=== PATIENT | female | born 1975 | race Caucasian/White ===

== ENCOUNTER → 2018-06-06 | Outpatient (CLI) | payer BC ==
[2016-05-01 20:55] VITALS: BP 137/80
--- NOTE | 2018-06-06 10:50 | RAD ---
MR#: [id number] Date of Study: 06/06/2018 Ordering Physician: MELO MAHMOOD, Referring Physician: MELO MAHMOOD Tech: Virginia Massey RDMS RVT APPROVED REPORT Patient Location : OUT-PATIENT Indications Lower Extremity Pain : Bilateral Findings Grayscale images of the bilateral saphenofemoral junctions do not reveal any evidence of thrombus on limited imaging. The bilateral greater and lesser saphenous vein appear to be compressible and did no t show any evidence of reflux. The right great saphenous vein measures approximately 4 mm and the lef t great saphenous vein measures approximately 6 mm. Critical Notification Critical Value: No <Conclusion> No reflux in the bilateral greater and lesser saphenous veins. Signed by : Santana Ly, Electronically Approved : 06/06/2018 10:49:50
--- NOTE | 2018-06-06 10:57 | RAD ---
MR#: [id number] Date of Study: 06/06/2018 Ordering Physician: MELO MAHMOOD, Referring Physician: Eddie POPE: Virginia Massey RDMS RVT APPROVED REPORT Bilateral Lower Extremity Venous Study for DVT Patient Location: OUT-PATIENT Indications Lower Extremity Pain: Bilateral Findings Grayscale images of the bilateral saphenofemoral junctions and common femoral veins do not reveal any evidence of thrombus and appear to be compressible. The bilateral proximal superficial femoral veins are not well visualized but grossly appear to be com pressible with normal color Doppler flow. The mid to distal superficial femoral vein and popliteal ve ins appear to be compressible without any flow obstruction. The bilateral below-knee veins are not well visualized but appear to be compressible with spontaneous flow noted. Critical Notification Critical Value: No <Conclusion> No evidence of DVT in the bilateral lower extremities. Technically difficult study. Signed by : Santana Ly, Electronically Approved : 06/06/2018 10:55:43
--- NOTE | 2018-06-06 11:14 | CARD ---
MR#: [id number] Date of Study: 06/06/2018 Ordering Physician: MELO MAHMOOD, Referring Physician: MELO MAHMOOD Tech: Flaca Shields RDCS APPROVED REPORT EXAM: Two-dimensional and M-mode echocardiogram with Doppler and color Doppler. Other Information Quality : Good INDICATION Chest Pain 2D DIMENSIONS RVDd2.7 (2.9-3.5cm)Left Atrium(2D)3.5 (1.6-4.0cm) IVSd0.8 (0.7-1.1cm)Aortic Root(2D)2.8 (2.0-3.7cm) LVDd5.3 (3.9-5.9cm)LVOT Diameter2.0 (1.8-2.4cm) PWd0.8 (0.7-1.1cm)LVDs3.1 (2.5-4.0cm) FS (%) 30.0 %SV97.1 ml LVEF(%)60.0 (>50%) Aortic Valve AoV Peak Daren.143.6cm/sAoV VTI27.5cm AO Peak GR.8.2mmHgLVOT Peak Daren.120.8cm/s LVOT VTI 22.11cmAO Mean GR.5mmHg ALEXIS (VMAX)2.53dh7LQQ (VTI)2.52cm2 Mitral Valve MV E Plosuyxz70.1cm/sMV DECEL XIFN119xl MV A Lonpkeju42.4cm/sMV WSC63mj E/A Ratio0.9MVA (PHT)3.61cm2 TDI E/Lateral E'6.4E/Medial E'9.4 Tricuspid Valve TR P. Wglqbkqq545xw/sRAP AMQXYAYD6ryKd TR Peak Gr.63srWbLAXK59ejLp Pulmonary Vein S1 Wnxuesio56.1cm/sD2 Ptxkpdqp22.5cm/s LEFT VENTRICLE The left ventricle is normal size. There is normal left ventricular wall thickness. The left ventricu lar systolic function is normal and the ejection fraction is within normal range. The Ejection Fracti on is 55-60%. There is normal LV segmental wall motion. The left ventricular diastolic function and f illing is normal for age. RIGHT VENTRICLE The right ventricle is normal size. The right ventricular systolic function is normal. ATRIA The left atrium size is normal. The right atrium size is normal. The interatrial septum is intact wit h no evidence for an atrial septal defect or patent foramen ovale as noted on 2-D or Doppler imaging. AORTIC VALVE The aortic valve is not well visualized but appears to be functioning normally by Doppler interrogati on. Doppler and Color Flow revealed no significant aortic regurgitation. There is no significant aort ic valvular stenosis. MITRAL VALVE The mitral valve is normal in structure and function. There is no evidence of mitral valve prolapse. There is no mitral valve stenosis. Doppler and Color-flow revealed mild mitral regurgitation. TRICUSPID VALVE The tricuspid valve is normal in structure and function. Doppler and Color Flow revealed trace tricus pid regurgitation. The PA pressure was estimated at 25 mmHg. There is no tricuspid valve stenosis. PULMONIC VALVE The pulmonic valve is not well visualized. Doppler and Color Flow revealed trace pulmonic valvular re gurgitation. There is no pulmonic valvular stenosis. GREAT VESSELS The aortic root is normal in size. The ascending aorta is normal in size. The IVC is normal in size a nd collapses >50% with inspiration. PERICARDIAL EFFUSION There is no evidence of significant pericardial effusion. Critical Notification Critical Value: No <Conclusion> The left ventricular systolic function is normal and the ejection fraction is within normal range. Th e Ejection Fraction is 55-60%. There is normal LV segmental wall motion. Signed by : Santana Ly, Electronically Approved : 06/06/2018 11:13:46
== END | disposition home or self-care (01) ==
LOC: US 08:07
PROVIDERS: ATTEND Internal Medicine Cardiovascular Disease
DX: I34.0 Nonrheumatic mitral (valve) insufficiency (principal); M79.604 Pain in right leg; M79.605 Pain in left leg
CPT/HCPCS: 93306; 93970

== ENCOUNTER → 2018-11-13 | Outpatient (CLI) | payer OTHER ==
[2016-05-01 20:55] VITALS: BP 137/80
--- NOTE | 2018-11-13 17:27 | KCIC ---
AP view of the pelvis and two-view study of the right hip Clinical indications: Right hip pain for 2 months. FINDINGS: No acute fracture or dislocation or osteolytic process is seen. No significant arthritic change is evident. IMPRESSION: No significant osseous abnormality. Electronically signed by: Julian Lees MD (11/13/2018 5:23 PM) [facility] [id number]
--- NOTE | 2018-11-13 17:30 | KCIC ---
Five view lumbar spine series: Clinical indications: Low back pain radiating down the right leg for 2 months.. Findings: No fracture of the transverse processes is seen.No compression fracture is evident.No spondylolisthesis is seen.No discitis or osteolytic process is seen.No radiolucent pars defect is seen.No significant facet arthropathy is seen. There is mild degenerative endplate spurring at L1-2 and L2-3 and L3-4. Impression: Mild degenerative lumbar spondylosis. Electronically signed by: Julian Lees MD (11/13/2018 5:25 PM) [place] [id number]
== END | disposition home or self-care (01) ==
LOC: RAD 08:38
PROVIDERS: ATTEND Nurse Practitioner Family
DX: M47.816 Spondylosis without myelopathy or radiculopathy, lumbar region (principal); M54.31 Sciatica, right side
CPT/HCPCS: 72110; 73502

== ENCOUNTER → 2018-11-20 | Outpatient (CLI) | payer OTHER ==
[2016-05-01 20:55] VITALS: BP 137/80
--- NOTE | 2018-11-20 16:49 | KCIC ---
MRI Lumbar Spine without contrast History: Low back pain, pain into the right leg Technique: Multiplanar, multi sequential noncontrast MR imaging was performed of the lumbar spine. Comparison: None Findings: There is mild motion. Lumbar vertebral body stature and AP alignment are maintained. Intervertebral disc spaces are relatively preserved. Conus terminates at the superior aspect of L1. There is nonspecific edema of the posterior subcutaneous fat of the lower back. There is some edema of the right L4 and L5 pedicles with some extent to the facet articular processes more likely reactive/degenerative in etiology. L1-L2: Spinal canal and neural foramina are adequate. L2-L3: There is mild buckling of the ligamentum flavum. Neural foramina and spinal canal are adequate. L3-L4: Neural foramina and spinal canal are adequate. L4-L5: There is minimal buckling of the ligamentum flavum and prominence of posterior epidural fat. Spinal canal and neural foramina are adequate. L5-S1: Spinal canal is adequate. Neural foramina are overall adequate. Impression: 1. There is no significant lumbar spinal stenosis or neural foramina compromise. There is mild edema of the right L4 and L5 pedicles extending to the facet articular processes more likely reactive/degenerative in etiology. Electronically signed by: Jesse King MD (11/20/2018 4:45 PM) [id number]
== END | disposition home or self-care (01) ==
LOC: KCIC MRI 15:54
PROVIDERS: ATTEND Nurse Practitioner Family
DX: M54.5 Low back pain (principal); R60.0 Localized edema
CPT/HCPCS: 72148